=== PATIENT | male | born 1955 | race Caucasian/White ===

== ENCOUNTER → 2017-12-29 | Outpatient (CLI) | payer OTHER ==
[~2017-12-29] MED LIST: ATOR20TA15 PO; CELE1CAP8 PO; CELE200C PO; FISH100020 PO; LIPI20TA PO; MELA1TAB3 PO; MELA5 PO; NEXI20CA PO; OMEGCAP PO
--- NOTE | 2017-12-30 09:39 | EKG ---
Date Performed: 12/29/2017 Time Performed: 09:34:42 PTAGE: 62 years EKG: Sinus rhythm WITH FIRST DEGREE AV BLOCK ABNORMAL ECG Since the prior tracing, there has been no significant georges e PREVIOUS TRACING : 07/13/2016 07.54 DOCTOR: Ken Rain Interpretating Date/Time 12/30/2017 09:37:14
== END ==
LOC: CPRE 09:00
PROVIDERS: ATTEND Surgery
DX: Z01.810 Encounter for preprocedural cardiovascular examination (principal); Z01.812 Encounter for preprocedural laboratory examination; M79.609 Pain in unspecified limb; R94.31 Abnormal electrocardiogram [ECG] [EKG]
CPT/HCPCS: 93005

== ENCOUNTER → 2017-12-31 | Day surgery (SDC) | payer OTHER ==
--- NOTE | 2017-12-30 15:17 | MH ---
cc: Danyelle Osborne MD DATE OF ADMISSION: 12/31/2017 ADMITTING DIAGNOSIS: Torn medial meniscus, left knee; now for arthroscopy, left knee. ADMISSION HISTORY AND PHYSICAL: This pleasant 62-year-old male is being admitted today for arthroscopy of the left knee due to torn meniscus. PAST HISTORY: Patient has a history of diabetes, type 2; sciatica, low back pain. CURRENT MEDICATIONS: Celebrex, Avastatin and Nexium. PREVIOUS SURGERIES: Hernia repair and ACL reconstruction. REVIEW OF SYSTEMS: Noncontributory. FAMILY HISTORY: Noncontributory. SOCIAL HISTORY: He does not smoke and only drinks alcohol occasionally. ALLERGIES: HAS NO KNOWN ALLERGIES. PHYSICAL EXAMINATION: GENERAL: We find a 62-year-old male, well-developed, well-nourished, oriented x 3 complaining of pain in his left knee. VITAL SIGNS: Blood pressure 120/82, pulse 90 and regular, respirations 16, temperature 98.1, pulse oximetry 97% on room air. HEENT: Eyes PERRLA, EOMI. Ears, nose, mouth clear. NECK: Supple. LUNGS: Clear. HEART: Regular rate. ABDOMEN: Soft. Positive bowel sounds. Nontender. EXTREMITIES: Reveal his left knee to be tender with crepitance on range of motion. He is neurovascularly intact to his toes. IMPRESSION: Torn medial meniscus, left knee. PLAN: Admission for arthroscopy, left knee today. Patient given prescription for postoperative pain control in the office. MD JIM Hahn/SUSANA , 03:00 PM , 03:16 PM
[~2017-12-31] VITALS: Ht 182.9 cm; Wt 91.8 kg
[~2017-12-31] MED LIST changes: +*morphine SULFATE 4 MG/ML PERIprocedure ONLY ONE; +ACETAMINOPHEN 1000 MG/100 ML 100 ML IV ONE; +ACETAMINOPHEN/HYDROcodone 325 MG/5 MG TAB ONE; +BETAMETHASONE SOD PHOS/ACETATE SUSP 30 MG/5 ML VIAL ONE; +BUPIVACAINE HCL PF 0.25% 30 ML VIAL ONE; -CELE200C PO; +CHLORHEXIDINE GLUCONATE 2 % 1 PACK (2 CLOTHS) TOPICAL PRN; +CHLORHEXIDINE GLUCONATE 4% SOLN 120 ML BTL TOPICAL SCH; +DO NOT ADM ANY ANTICOAGULANT DRUGS PRN; +FAMOTIDINE 20 MG/2 ML VIAL ONE; -FISH100020 PO; +KETOROLAC TROMETHAMINE 30 MG/ML (IVP) VIAL IV PUSH ONE; +LACTATED RINGER'S 1000 ML INJ 1,000 ML IV ONE; +LACTATED RINGER'S 1000 ML IV PRN; +LIDOCAINE HCL 1% PF 5 ML SYRINGE OTHER ONE; -LIPI20TA PO; -MELA1TAB3 PO; +METOPROLOL TARTRATE 25 MG TAB PO PRN; +MIDAZOLAM HCL 2 MG/2 ML VIAL ONE; +ONDANSETRON HCL 4 MG/2 ML VIAL IV ONE; +POVIDONE IODINE 5% (ANTISEPSIS KIT) 4 APPLICATIONS EACH NARE PRN; +PROPOFOL 200 MG/20 ML AMP IV ONE; +SODIUM CHLORID 0.9% 500 ML IV PRN; +ceFAZolin 2 GM PREMIX 50 ML IV SCH; +ceFAZolin INJ 1,000 MG VIAL IV ONE; +ePHEDrine/NS 25 MG/5 ML SYRINGE IV ONE
[2017-12-31 12:40] VITALS: BP 142/87; PULSE 73; RESP 16; TEMP 97.4; O2SAT 97
--- NOTE | 2018-01-03 12:17 | MP ---
cc: Danyelle Osborne MD DATE OF OPERATION: 12/31/2017 PREOPERATIVE DIAGNOSIS: Torn medial meniscus, left knee. POSTOPERATIVE DIAGNOSIS; Torn medial meniscus, left knee. SURGERY PERFORMED: Arthroscopy with excision, torn medial meniscus and chondroplasty medial compartment, left knee. SURGEON: Danyelle Osborne MD ANESTHESIA: LMA. PROCEDURE: Arthroscopy with excision of torn medial meniscus, chondroplasty medial compartment left knee. DESCRIPTION OF THE PROCEDURE IN DETAIL: The patient was brought to the operating room and placed on the operating room table in the supine position. After successful induction of general anesthesia, the patient's ?? leg was prepped and draped in the usual manner. The knee was then placed in a knee pastrana and tightened. Arthroscopic examination was then performed by making a stab wound over the proximal superior and medial aspect of the patellofemoral joint for insertion of the inflow cannula and fluid, followed by stab wounds over the medial and lateral joint margins respectively for insertion of the arthroscope, shaver and probe. Arthroscopic examination was then performed which revealed: Intact lateral compartment, intact anterior cruciate, intact patellofemoral joint. Medial compartment found to have grade 3 chondromalacia changes with a large tear of the posterior horn of the medial meniscus removed using ArthroCare cutter, shaver and probe to afford surface and the surface of the knee. The weightbearing surface of the femur and tibia were smoothed using ArthroCare system as well. The rest of the knee joint found to be intact. The wound was irrigated copiously with lactated Ringer's solution. Excess fluid was removed. 10 cc of 0.25% Marcaine plain and Celestone were inserted into the knee joint, skin approximated with interrupted 3-0 nylon suture, wet and then dry dressing applied to the wound followed by Xeroform gauze, sterile dressing, thigh-high Jonathan wrap. No tourniquet utilized. Estimated blood loss 10 mL. Sponge and needle count correct. The patient tolerated the procedure well and left the operating room in satisfactory condition. MD JIM Hahn/LANCE/rh , 11:17 AM , 02:59 PM
== END | disposition home or self-care (01) ==
LOC: HSDC 07:16
PROVIDERS: ATTEND Surgery
DX: S83.242A Other tear of medial meniscus, current injury, left knee, initial encounter (principal); M94.262 Chondromalacia, left knee
CPT/HCPCS: 01400; 29881; J0131; J0690; J0702; J1885; J2250; J2270; J2405; J3010; J7120